=== PATIENT | female | born 1935 | race Native Hawaiian/Other Pacific Islander ===

== ENCOUNTER 2018-04-28 22:16 | Emergency (ER) | payer OTHER ==
[~2018-04-28] VITALS: Ht 165.1 cm; Wt 54.6 kg
[2018-04-28 22:16] VITALS: BP 162/63; TEMP 97.5
[2018-04-28] MEDS ORDERED: OMEPRAZOLE PO (23:15)
[2018-04-28] MEDS ORDERED: MEMANTINE HYDRO28 MG PO (23:15)
[2018-04-28] MEDS ORDERED: OLANZAPINE10 M2 PO (23:16)
[2018-04-28] MEDS ORDERED: VITAMIN D31000 UNI1 PO (23:17)
[2018-04-28] MEDS ORDERED: DOCU SOFT100 MG PO (23:18)
[2018-04-28] MEDS ORDERED: TYLENOL325 MG PO (23:19)
[2018-04-28] MEDS ORDERED: MAGNSUS68 PO (23:19)
[2018-04-28] MEDS ORDERED: PROMETHAZINE25 M1 RE (23:20)
[2018-04-28] MEDS ORDERED: ROBAFEN100 MG/5 M PO (23:20)
== END 2018-04-28 22:34 | disposition other institution (70) ==
LOC: ED 22:21
DX: F20.89 Other schizophrenia (principal); Z04.6 Encounter for general psychiatric examination, requested by authority
CPT/HCPCS: 99285